=== PATIENT | male | born 1945 | race Caucasian/White ===

== ENCOUNTER 2023-05-04 06:14 | Day surgery (SDC) | payer OTHER ==
[2023-04-27 12:10] VITALS: BP 116/63; PULSE 74; RESP 17
[2023-05-04] VITALS (9 sets, daily range): BP systolic 97–138; BP diastolic 4–60; PULSE 50–58; RESP 12–20
[~2023-05-04] VITALS: Ht 175.3 cm; Wt 84.4 kg
[~2023-05-04 06:14] MED LIST: ACET-2123 PO; CHLO1TAB PO; CLOB15CR5 TP; FERS325 PO; GABA300C PO; GABA600T10 PO; LORA10TA7 PO; MIRT-22 PO; OMEP40CA21 PO; PREVAGEN ES PO; ROSU10TA28 PO; SENN-141 PO; TAMS-1 PO; folic acid PO; vitamin b12 PO; vitamin d3 PO; zyzal PO
[2023-05-04] MEDS ORDERED: 0.9%NACL 1000ML 1,000 ML IV ONE (06:24)
[2023-05-04] MEDS ORDERED: PROPOFOL 10 MG/ML 20ML VIAL IV ONE (08:15)
== END 2023-05-04 09:30 | disposition home or self-care (01) ==
LOC: ENDO 06:14 → DAH 06:14 → ENDO 09:30
PROVIDERS: ATTEND Internal Medicine Gastroenterology
DX: R93.3 Abnormal findings on diagnostic imaging of other parts of digestive tract (principal); K31.89 Other diseases of stomach and duodenum; K29.50 Unspecified chronic gastritis without bleeding; K21.9 Gastro-esophageal reflux disease without esophagitis; M19.90 Unspecified osteoarthritis, unspecified site; E78.2 Mixed hyperlipidemia; I63.89 Other cerebral infarction; Z79.899 Other long term (current) drug therapy; Z87.891 Personal history of nicotine dependence; Z72.89 Other problems related to lifestyle; Z79.01 Long term (current) use of anticoagulants; Z86.73 Personal history of transient ischemic attack (TIA), and cerebral infarction without residual deficits; Z98.890 Other specified postprocedural states
CPT/HCPCS: 43239; 43237; J7030 ×2; J2704; A4620; A4215 ×2; A4223; A7002; A4222; A4221; A4663; A4216; A4606; J3490